=== PATIENT | female | born 1975 | race Two or more races ===

== ENCOUNTER 2021-08-18 09:09 | Emergency (ER) | payer MEDICAID, OTHER ==
[~2021-08-18] VITALS: Ht 152.4 cm; Wt 68.0 kg
[2021-08-18 10:26] VITALS: BP 137/65
[2021-08-18] MEDS ORDERED: IBUP600T27 PO (10:37)
[2021-08-18] MEDS ORDERED: METH500T22 PO (10:37)
== END 2021-08-18 10:39 | disposition home or self-care (01) ==
LOC: ER 09:09
DX: S16.1XXA Strain of muscle, fascia and tendon at neck level, initial encounter (principal); V43.62XA Car passenger injured in collision with other type car in traffic accident, initial encounter; Y93.89 Activity, other specified; Y92.488 Other paved roadways as the place of occurrence of the external cause; Y99.8 Other external cause status
CPT/HCPCS: 72040